=== PATIENT | female | born 1995 | race Caucasian/White ===

== ENCOUNTER → 2018-07-23 | Day surgery (SDC) | payer OTHER ==
[~2018-07-23] VITALS: Ht 167.6 cm; Wt 77.1 kg
[~2018-07-23] MED LIST: DEXAMETHASONE SOD PHOS 20 MG/5 ML VIAL. ONE; FAMOTIDINE 20 MG/2 ML VIAL ONE; FERRIC SUBSULFATE 8 ML SOL.W.APPL TP ONE; IV RINGERS,LACTATED 1000ML 1,000 ML IV SCH; KETOROLAC 30 MG/ML INJ FOR OR. INJ ONE; LIDOCAINE 1% PF 5 ML VIAL. ONE; LIDOCAINE 1%/EPI 1:100,000 20 ML VIAL. ONE; MIDAZOLAM HCL/PF 2 MG/2 ML VIAL. ONE; ONDANSETRON PF 4 MG/2 ML VIAL. ONE; PROPOFOL 20 ML IV ONE; SEVOFLURANE 16 TO 30 MINUTES. IH ONE; oxyCODONE/APAP 5/325 1 TAB TABLET PO ONE
[2018-07-23 08:21] LABS: U PREG PATIENT NEGATIVE (NEG)
--- NOTE | 2018-07-23 10:13 | PDOC ---
BRIEF OPERATIVE NOTE Date: Jul 23, 2018 Pre-Op Diagnosis cervical dysplasia Post-Op Diagnosis same Procedure Performed Cervical Cone bx Surgeon Dr. Diaz Anesthesia Type: General Blood Loss less than 5 ml Specimens Obtained cervical cone bx Findings cervical dysplasia Complications none Operative Note see dictation ANGELI DIAZ Jr, MD Jul 23, 2018 10:13
--- NOTE | 2018-07-23 10:15 | DISCH ---
DISCHARGE INSTRUCTIONS Condition on Discharge Condition on Discharge: Stable Activity After Discharge Activity Instructions for Disc: Activity as tolerated Lifting Instructions after Dis: No heavy lifting Driving Instructions after Dis: Do not drive today Diet after Discharge Diet after Discharge: Regular Contacting the DRTae after DC Call your doctor for: Concerns you may have Follow-Up Follow up with: Dr. Diaz in 2 weeks. ANGELI DIAZ Jr, MD Jul 23, 2018 10:15
[2018-07-23 11:10] VITALS: BP 122/68
--- NOTE | 2018-07-23 11:52 | OP ---
DATE OF SURGERY: PREOPERATIVE DIAGNOSIS: Cervical dysplasia. POSTOPERATIVE DIAGNOSIS: Cervical dysplasia. PROCEDURE: Cervical cone biopsy. SURGEON: Angeli Diaz MD ANESTHESIA: GETA. ESTIMATED BLOOD LOSS: Less than 5 mL. COMPLICATIONS: None. FINDINGS: Cervical dysplasia. SUMMARY: A 23-year-old who had colposcopic biopsy of ANT 2, requiring cervical cone biopsy. The patient was counseled on risks, benefits and expectations and voiced clear understanding to proceed. The patient also requested cervical cultures and STD screening, which we did perform. DESCRIPTION OF PROCEDURE: The patient was taken to surgery suite, placed in dorsal lithotomy position, was prepped with Betadine solution and draped in sterile fashion. After adequate anesthesia, weighted speculum and curved Enrico placed vaginally. Anterior lip of the cervix grasped with single tooth tenaculum. Cervix was injected 1% lidocaine in circumferential manner, 2-0 Vicryl sutures placed at 3 o'clock and 9 o'clock position for better stabilization of cervix. The single tooth tenaculum was removed. With the aid of 45 degree blade, a portion of the anterior and posterior lip of the cervix was excised in a cone formation. The remaining cervical epithelium was cauterized with Bovie cautery for hemostasis. Monsel's was also placed for better hemostasis. The weighted speculum was removed. The patient tolerated the procedure well and was sent to recovery room in stable condition. Sponge and needle count correct x 3. ANGELI DIAZ MD DR: JASWINDER/jaswinder JOB#: [id number] / [id number]
[2018-07-24 14:28] LABS: GC PROBE Positive (Negative)
--- NOTE | 2018-07-29 09:11 | PATHOLOGY ---
[facility] Accession Number: [id number] . 01 Material submitted: . CERVICAL CONE BIOPSY . 01 Clinical history: . Cervical dysplasia . 02 Diagnosis: Uterine cervix, cervical cone biopsy: - Severe dysplasia/carcinoma in situ (ANT III), with focal superficial endocervical glandular extension. - ANT III is focally present at the exocervical margin. - Endocervical and deep margins negative for ATN III. - Chronic cervicitis with focal squamous metaplasia. ([facility]; 07/28/2018) S/07/28/2018 . 02 Comment: There is no evidence of invasive carcinoma. . 02 Electronically signed: . Larry Butler MD, Pathologist NPI- [id number] . 01 Gross description: . The specimen is received in formalin, labeled "Sary Tubbs and cervical cone biopsy suture at the 12 o'clock position", is a semi-lunar, oriented pierre-white rubbery soft tissue measuring 3.7 x 1.2 x 1.0 cm. A blue suture indicates 12:00. The specimen is inked black, divided into 4 quadrants and each quadrant serially sectioned and the entire specimen is contiguously submitted in A1-A4. ([facility]; 07/23/2018) SHS/SHS . 02 Pathologist provided ICD-10: D06.9 . 02 CPT . 446587 Performed at: 01 [facility] [address], [place] [id number] MD Stone Salgado MD Phone: [phone] Performed at: 02 [facility] [address] [place], [place] [id number] MD Larry Butler MD Phone: [phone]
== END | disposition home or self-care (01) ==
LOC: SURG 07:38
PROVIDERS: ATTEND Obstetrics & Gynecology
DX: D06.0 Carcinoma in situ of endocervix (principal); N72 Inflammatory disease of cervix uteri; A64 Unspecified sexually transmitted disease; Z86.19 Personal history of other infectious and parasitic diseases; Z90.49 Acquired absence of other specified parts of digestive tract
CPT/HCPCS: 57500; 81025; 86592; 86703; 87491; 87591; 88307; J0690; J1100; J1885; J2250; J2405; J2704; J3490; S0028; 36415; 86695; A7015

== ENCOUNTER → 2018-07-31 | Outpatient (CLI) | payer OTHER ==
[~2018-07-31] MED LIST changes: -DEXAMETHASONE SOD PHOS 20 MG/5 ML VIAL. ONE; -FAMOTIDINE 20 MG/2 ML VIAL ONE; -FERRIC SUBSULFATE 8 ML SOL.W.APPL TP ONE; -IV RINGERS,LACTATED 1000ML 1,000 ML IV SCH; -KETOROLAC 30 MG/ML INJ FOR OR. INJ ONE; -LIDOCAINE 1% PF 5 ML VIAL. ONE; -LIDOCAINE 1%/EPI 1:100,000 20 ML VIAL. ONE; -MIDAZOLAM HCL/PF 2 MG/2 ML VIAL. ONE; -ONDANSETRON PF 4 MG/2 ML VIAL. ONE; -PROPOFOL 20 ML IV ONE; -SEVOFLURANE 16 TO 30 MINUTES. IH ONE; +cefTRIAXone IM 250 MG VIAL IM ONE; -oxyCODONE/APAP 5/325 1 TAB TABLET PO ONE
[2018-07-31 12:03] VITALS: BP 113/65
== END | disposition home or self-care (01) ==
LOC: OPS 10:46
PROVIDERS: ATTEND Obstetrics & Gynecology
DX: A54.9 Gonococcal infection, unspecified (principal); Z85.41 Personal history of malignant neoplasm of cervix uteri; Z86.19 Personal history of other infectious and parasitic diseases; Z90.49 Acquired absence of other specified parts of digestive tract
CPT/HCPCS: 96372; J0696

== ENCOUNTER 2018-10-01 06:26 | Observation (INO) | payer OTHER ==
[~2018-10-01] VITALS: Ht 167.6 cm; Wt 81.6 kg
[2018-10-01] VITALS (13 sets, daily range): BP systolic 98–113; BP diastolic 49–67
[~2018-10-01 06:26] MED LIST changes: +[UNRECOGNIZED DRUG - OTHER]; -cefTRIAXone IM 250 MG VIAL IM ONE
[2018-10-01 06:58] LABS: U PREG PATIENT NEGATIVE (NEG)
[2018-10-01] MEDS ORDERED: LIDOCAINE 1% PF 2 ML VIAL. ID PRN (07:00)
[2018-10-01] MEDS ORDERED: fentaNYL PF VIAL 100 MCG/2 ML VIAL IV PRN (07:00)
[2018-10-01] MEDS ORDERED: IV RINGERS,LACTATED 1000ML 1,000 ML IV SCH (07:00)
[2018-10-01] MEDS ORDERED: PROCHLORPERAZINE 10 MG/2 ML VIAL. IV PRN ×2 (07:00→09:15)
[2018-10-01] MEDS ORDERED: ONDANSETRON PF 4 MG/2 ML VIAL. IV PRN ×2 (07:00→09:15)
[2018-10-01] MEDS ORDERED: METHYLENE BLUE 1% 10 ML VIAL. ONE (07:26)
[2018-10-01] MEDS ORDERED: ESTROGENS, CONJ VAGINAL CREAM 30GM TUBE. ONE (07:26)
[2018-10-01] MEDS ORDERED: LIDOCAINE 1%/EPI 1:100,000 20 ML VIAL. INJ ONE (07:30)
[2018-10-01] MEDS ORDERED: PROPOFOL 20 ML IV ONE (07:53)
[2018-10-01] MEDS ORDERED: ONDANSETRON PF 4 MG/2 ML VIAL. ONE (07:53)
[2018-10-01] MEDS ORDERED: FAMOTIDINE 20 MG/2 ML VIAL ONE (07:53)
[2018-10-01] MEDS ORDERED: LIDOCAINE 1% PF 5 ML VIAL. ONE (07:53)
[2018-10-01] MEDS ORDERED: DEXAMETHASONE SOD PHOS 20 MG/5 ML VIAL. ONE (07:53)
[2018-10-01] MEDS ORDERED: ROCURONIUM 50 MG/5 ML VIAL. ONE (07:56)
[2018-10-01] MEDS ORDERED: fentaNYL PF VIAL 100 MCG/2 ML VIAL ONE ×3 (07:56→09:32)
[2018-10-01] MEDS ORDERED: MIDAZOLAM HCL/PF 2 MG/2 ML VIAL. ONE (07:56)
[2018-10-01] MEDS ORDERED: BUPIVAC MPF-EPI 0.5%-1:200000 30 ML VIAL. ONE (07:57)
[2018-10-01 08:10] LABS: BASO % 1 % (0-3); EOS # 0.1 x10^3/uL (0.0-0.7); EOS % 1 % (0-3); HEMATOCRIT 40.9 % (36.0-47.0); HEMOGLOBIN 14.3 g/dL (12.0-15.5); LYMPH # 2.2 x10^3/uL (1.0-4.8); LYMPH % 36 % (24-48); MEAN CORPUSCULAR HEMOGLOBIN 32 pg (25-35); MEAN CORPUSCULAR HGB CONC 35 g/dL (31-37); MEAN CORPUSCULAR VOLUME 92 fL (79-100); MONO # 0.5 x10^3/uL (0.0-1.1); MONO % 8 % (0-9); NEUT # 3.4 x10^3uL (1.8-7.7); NEUT % 55 % (31-73); PLATELET COUNT 207 x10^3/uL (140-400); RED BLOOD COUNT 4.43 x10^6/uL (3.50-5.40); RED CELL DISTRIBUTION WIDTH 12.6 % (11.5-14.5); WHITE BLOOD COUNT 6.2 x10^3/uL (4.0-11.0)
[2018-10-01] MEDS ORDERED: PHENYLEPHRINE in 0.9% NACL PF 1 MG/10 ML SYRINGE. IV ONE (08:48)
[2018-10-01] MEDS ORDERED: GLYCOPYRROLATE 1 MG/5 ML VIAL. ONE (08:48)
[2018-10-01] MEDS ORDERED: NEOSTIGMINE METHYLSULFATE 5 MG/5 ML SYRINGE. ONE (08:48)
[2018-10-01] MEDS ORDERED: SEVOFLURANE 31 TO 60 MINUTES. IH ONE (08:49)
--- NOTE | 2018-10-01 09:07 | PDOC ---
BRIEF OPERATIVE NOTE Date: Oct 01, 2018 Pre-Op Diagnosis ANT 3 Post-Op Diagnosis Same Procedure Performed 1. Nexplanon Removal Left arm 2. [facility] Surgeon Dr. Emily Craig Anesthesia Type: General Blood Loss 25 ml Specimens Obtained cervix, uterus and Nexplanon Findings ANT 3; Nexplanon in Left arm Complications none Operative Note see dictation ANGELI LEAL Jr, MD Oct 01, 2018 09:07
[2018-10-01] MEDS ORDERED: CALCIUM CARBONATE 500 MG TAB.CHEW PO PRN (09:15)
[2018-10-01] MEDS ORDERED: ZOLPIDEM 5 MG TABLET. PO PRN (09:15)
[2018-10-01] MEDS ORDERED: diphenhydrAMINE HCL 25 MG CAPSULE PO PRN (09:15)
[2018-10-01] MEDS ORDERED: 0.9 % SODIUM CHLORIDE 10 ML DISP.SYRIN. IV PRN (09:15)
[2018-10-01] MEDS ORDERED: DEXTROSE 50% 25 GM / 50ML DISP.SYRIN. IV PRN (09:15)
[2018-10-01] MEDS ORDERED: SIMETHICONE 80 MG TAB.CHEW PO PRN (09:15)
[2018-10-01] MEDS: fentaNYL PF VIAL 100 MCG/2 ML VIAL IV PRN ×4 (09:20→10:10)
--- NOTE | 2018-10-01 09:56 | OP ---
DATE OF SURGERY: PREOPERATIVE DIAGNOSES: ANT 3. POSTOPERATIVE DIAGNOSES: ANT 3. PROCEDURE: 1. Nexplanon removal, left arm. 2. TVH. SURGEON: Angeli Diaz MD GENERAL MANAGER: Kiara. ANESTHESIA: GETA. ESTIMATED BLOOD LOSS: 25 mL. COMPLICATIONS: None. FINDINGS: ANT 3. Normal fallopian tubes and ovaries bilaterally. SUMMARY: A 23-year-old female with ANT 3 that persisted despite cone biopsy, required transvaginal hysterectomy. The patient also requested Nexplanon removal. She was counseled on risks, benefits and expectations and voiced clear understanding to proceed. DESCRIPTION OF PROCEDURE: The patient was placed in dorsal lithotomy position. She was prepped and draped in sterile fashion. The left arm where the Nexplanon was identified was prepped with ChloraPrep, 0.5% lidocaine with epinephrine was injected in the left arm at the site of the Nexplanon device. A small vertical skin incision was made with scalpel. DICTATION ENDS HERE. ANGELI DIAZ MD DR: JASWINDER/jaswinder JOB#: [id number] / [id number]
--- NOTE | 2018-10-01 10:02 | OP ---
DATE OF SURGERY: ADDENDUM. Please add this to the previous OP note, the phone system cut me off. The process of removing the Nexplanon, in which the arm was injected with 0.5% lidocaine with epinephrine at the site of the Nexplanon. Scalpel was used to make a small vertical skin incision. With the aid of a hemostat, the Nexplanon device was removed. Steri-Strip was placed to reapproximate the skin edges of the incision site, and Kerlix bandage was also placed for pressure dressing. Weighted speculum and curved [place] placed vaginally. Posterior lip of the cervix grasped with Seema clamps. 1% lidocaine with epinephrine was injected circumferentially. Bovie cautery was utilized to circumscribe the cervix. The vaginal wall mucosa was dissected away from the lower uterine segment using a moist Ray-Riley. Parametrial tissue and cardinal ligaments were clamped bilaterally with curved Pola clamps, cut and suture ligated with 2-0 Vicryl suture. The anterior cul-de-sac was entered using sharp dissection with Metzenbaum scissors. The curved Enrico was reapproximated for retraction purposes. The posterior cul-de-sac was entered bluntly. The long weighted speculum was placed. Uterosacral ligaments were clamped bilaterally, cut and suture ligated. The uterus was then retroverted, which the round ligament and uteroovarian pedicles were clamped bilaterally, cut and suture ligated. The uterus and cervix were then removed in their entirety. The vaginal cuff was reapproximated using modified Garcia culdoplasty. The remainder of the vaginal cuff was reapproximated using [id number] sutures. Moist vaginal packing was placed. Chang catheter was placed, which elicited clear yellow urine. The patient tolerated the procedure well and was sent to recovery room in stable condition. Sponge and needle count correct x 3. ANGELI LEAL MD DR: JASWINDER/jaswinder JOB#: [id number] / [id number]
[2018-10-01] MEDS ORDERED: MORPHINE SULFATE 10 MG/ML VIAL. IV ONE (10:45)
[2018-10-01] MEDS ORDERED: IBUPROFEN 400 MG TABLET. PO PRN (10:45)
[2018-10-01] MEDS: KETOROLAC 30 MG/ML VIAL. IV PRN ×3 (11:04→23:53)
[2018-10-01] MEDS: IV RINGERS,LACTATED 1000ML 1,000 ML IV SCH ×2 (11:06→19:30)
[2018-10-01] MEDS: GABAPENTIN 300 MG CAPSULE. PO SCH ×2 (14:08→21:47)
[2018-10-01] MEDS ORDERED: OPIUM/BELLADONNA 30/16.2MG SUPP.RECT. PR PRN (14:15)
[2018-10-02 00:26] VITALS: BP 108/54
[2018-10-02] MEDS: IV RINGERS,LACTATED 1000ML 1,000 ML IV SCH (03:36)
[2018-10-02 03:40] VITALS: BP 105/54
[2018-10-02] MEDS: GABAPENTIN 300 MG CAPSULE. PO SCH (05:55)
--- NOTE | 2018-10-02 08:20 | DISCH ---
DISCHARGE INSTRUCTIONS Condition on Discharge Condition on Discharge: Stable Activity After Discharge Activity Instructions for Disc: Activity as tolerated Lifting Instructions after Dis: No heavy lifting Driving Instructions after Dis: Do not drive today Diet after Discharge Diet after Discharge: Regular Contacting the DRTae after DC Call your doctor for: Concerns you may have Follow-Up Follow up with: Dr. Diaz in 2 weeks. ANGELI DIAZ Jr, MD Oct 02, 2018 08:20
--- NOTE | 2018-10-02 08:20 | PDOC ---
SURGICAL PROGRESS NOTE Subjective Pt. feeling well. Pain controlled. Vital Signs Vital Signs Date Time Temp Pulse Resp B/P (MAP) Pulse Ox O2 Delivery O2 Flow Rate FiO2 10/02/18 08:03 Room Air 10/02/18 03:40 97.9 86 18 105/54 (71) 96 97.9 10/01/18 12:30 96.0 I&O Intake and Output 10/02/18 07:00 Intake Total 1720 ml Output Total 2350 ml Balance -630 ml Intake Oral 1720 ml Output Urine Total 2350 ml # Voids 4 PATIENT HAS A HILLIARD: No General: Alert, Oriented X3, Cooperative HEENT: Atraumatic Lungs: Clear to auscultation Heart: Regular rate Abdomen: Normal bowel sounds, Soft, No masses Extremities: No edema Psych/Mental Status: Mental status NL Labs Laboratory Tests Test 10/01/18 06:00 10/01/18 06:50 Urine Test Negative (NEG) White Blood Count 6.2 x10^3/uL (4.0-11.0) Red Blood Count 4.43 x10^6/uL (3.50-5.40) Hemoglobin 14.3 g/dL (12.0-15.5) Hematocrit 40.9 % (36.0-47.0) Mean Corpuscular Volume 92 fL (79-100) Mean Corpuscular Hemoglobin 32 pg (25-35) Mean Corpuscular Hemoglobin Concent 35 g/dL (31-37) Red Cell Distribution Width 12.6 % (11.5-14.5) Platelet Count 207 x10^3/uL (140-400) Neutrophils (%) (Auto) 55 % (31-73) Lymphocytes (%) (Auto) 36 % (24-48) Monocytes (%) (Auto) 8 % (0-9) Eosinophils (%) (Auto) 1 % (0-3) Basophils (%) (Auto) 1 % (0-3) Neutrophils # (Auto) 3.4 x10^3uL (1.8-7.7) Lymphocytes # (Auto) 2.2 x10^3/uL (1.0-4.8) Monocytes # (Auto) 0.5 x10^3/uL (0.0-1.1) Eosinophils # (Auto) 0.1 x10^3/uL (0.0-0.7) Basophils # (Auto) 0.0 x10^3/uL (0.0-0.2) Assessment/Plan A: POD#1 s/p TVH P: D/c home. ANGELI LEAL Jr, MD Oct 02, 2018 08:20
[2018-10-02] MEDS ORDERED: IBUP-1027 PO (08:23)
[2018-10-02] MEDS ORDERED: GABA300C8 PO (08:23)
[2018-10-02 08:38] LABS: BASO % 0 % (0-3); EOS % 0 % (0-3); HEMATOCRIT 34.1 % (36.0-47.0); HEMOGLOBIN 11.7 g/dL (12.0-15.5); LYMPH % 24 % (24-48); MEAN CORPUSCULAR HEMOGLOBIN 32 pg (25-35); MEAN CORPUSCULAR HGB CONC 34 g/dL (31-37); MEAN CORPUSCULAR VOLUME 93 fL (79-100); MONO # 0.6 x10^3/uL (0.0-1.1); MONO % 8 % (0-9); NEUT # 5.6 x10^3uL (1.8-7.7); NEUT % 68 % (31-73); PLATELET COUNT 163 x10^3/uL (140-400); RED BLOOD COUNT 3.68 x10^6/uL (3.50-5.40); RED CELL DISTRIBUTION WIDTH 12.7 % (11.5-14.5); WHITE BLOOD COUNT 8.2 x10^3/uL (4.0-11.0)
[2018-10-02 09:19] VITALS: BP 98/62
--- NOTE | 2018-10-02 10:52 | OP ---
DATE OF SURGERY: 10/01/2018 PREOPERATIVE DIAGNOSES: ANT 3. POSTOPERATIVE DIAGNOSES: ANT 3. PROCEDURE: 1. Nexplanon removal, left arm. 2. TVH. SURGEON: Angeli Leal MD TRUSS DESIGNER: Kiara. ANESTHESIA: GETA. ESTIMATED BLOOD LOSS: 25 mL. COMPLICATIONS: None. FINDINGS: ANT 3. Normal fallopian tubes and ovaries bilaterally. SUMMARY: A 23-year-old female with ANT 3 that persisted despite cone biopsy, required transvaginal hysterectomy. The patient also requested Nexplanon removal. She was counseled on risks, benefits and expectations and voiced clear understanding to proceed. DESCRIPTION OF PROCEDURE: The patient was placed in dorsal lithotomy position. She was prepped and draped in sterile fashion. The left arm where the Nexplanon was identified was prepped with ChloraPrep, 0.5% lidocaine with epinephrine was injected in the left arm at the site of the Nexplanon device. A small vertical skin incision was made with scalpel. The process of removing the Nexplanon, in which the arm was injected with 0.5% lidocaine with epinephrine at the site of the Nexplanon. Scalpel was used to make a small vertical skin incision. With the aid of a hemostat, the Nexplanon device was removed. Steri-Strip was placed to reapproximate the skin edges of the incision site, and Kerlix bandage was also placed for pressure dressing. Weighted speculum and curved [place] placed vaginally. Posterior lip of the cervix grasped with Seema clamps. 1% lidocaine with epinephrine was injected circumferentially. Bovie cautery was utilized to circumscribe the cervix. The vaginal wall mucosa was dissected away from the lower uterine segment using a moist Ray-Riley. Parametrial tissue and cardinal ligaments were clamped bilaterally with curved Pola clamps, cut and suture ligated with 2-0 Vicryl suture. The anterior cul-de-sac was entered using sharp dissection with Metzenbaum scissors. The curved Enrico was reapproximated for retraction purposes. The posterior cul-de-sac was entered bluntly. The long weighted speculum was placed. Uterosacral ligaments were clamped bilaterally, cut and suture ligated. The uterus was then retroverted, which the round ligament and uteroovarian pedicles were clamped bilaterally, cut and suture ligated. The uterus and cervix were then removed in their entirety. The vaginal cuff was reapproximated using modified Garcia culdoplasty. The remainder of the vaginal cuff was reapproximated using [id number] sutures. Moist vaginal packing was placed. Chang catheter was placed, which elicited clear yellow urine. The patient tolerated the procedure well and was sent to recovery room in stable condition. Sponge and needle count correct x 3. ANGELI LEAL MD DR: JASWINDER/jaswinder JOB#: [id number] / [id number]
--- NOTE | 2018-10-02 16:09 | PATHOLOGY ---
[facility] Accession Number: [id number] . 01 Material submitted: . UTERUS AND CERVIX . 01 Clinical history: . None provided. Non-invasive cervical cancer per prior specimen. . 02 Diagnosis: "Uterus and cervix", vaginal hysterectomy: - Cervix with previous excision site changes; all new margins free of dysplasia. - Endometrium with weakly proliferative pattern and tubal metaplasia. - Myometrium with minimal histologic alterations. [facility]/10/02/2018 . 02 Comment: The patient has a history of "severe dysplasia/carcinoma in situ (ANT-III) with focal superficial endocervical glandular extension, focally present at the ectocervical margin" from a previous cervical cone biopsy ([id number]). ([facility] 10/02/2018) . 02 Electronically signed: . Maru Leavitt MD, Pathologist NPI- [id number] . 01 Gross description: . Received in formalin labeled "Sary Tubbs, uterus and cervix" is a hysterectomy specimen consisting of a uterus without attached fallopian tubes or ovaries. Parametrium is not present. The uterus weighs 63 g and measures 8.1 cm from fundus to cervix, 5.2 cm from cornu to cornu, and 2.7 cm from anterior to posterior. The serosa is pink orellana and smooth. The cervical os is slitlike and measures 1.5 cm, and the ectocervix is pink-orellana and glistening. No lesions are identified on the cervix. The ectocervical resection margin is inked green and the remainder of the cervical margin is inked black. The cervix is probed patent and the uterus is opened to reveal a 3.5 x 1.6 cm endometrial cavity and a 2.5 x 0.8 cm endocervical canal. The average endometrial thickness measures 0.1 cm and the average myometrial thickness measures 1.5 cm. The uterus is serially sectioned to reveal no leiomyomata. [employer] sections are submitted as follows: A1-A2 12:00 to 3:00 cervix A3-A6 3:00 to 6:00 cervix A7-A11 6:00 to 9:00 cervix A12-A14 9:00 to 12:00 cervix A15 anterior lower uterine segment A16 posterior lower uterine segment A17 anterior endomyometrium A18 posterior endomyometrium [place] [place] SYC/SYC . 02 Pathologist provided ICD-10: N85.8, Z86.001 . 02 CPT . 782052 Specimen Comment: A courtesy copy of this report has been sent to Specimen Comment: [phone]. Specimen Comment: Report sent to Performed at: 01 [facility] [address], [place] [id number] MD Stone Salgado MD Phone: [phone] Performed at: 02 [facility] [address] [place], [place] [id number] MD Larry Butler MD Phone: [phone]
== END 2018-10-02 09:20 | disposition home or self-care (01) ==
LOC: SURG 06:26 → 3 NORTH 09:29
PROVIDERS: ADMIT Obstetrics & Gynecology; ATTEND Obstetrics & Gynecology
DX: D06.9 Carcinoma in situ of cervix, unspecified (principal)
CPT/HCPCS: 11982; 36415; 58260; 81025; 85025; 86850; 86900; 86901; 88309; 96374; 96375; 96376; A7015; G0378; G0379; J0690; J0780; J1100; J1885; J2250; J2270; J2370; J2704; J2710; J3010; J3490; J7120; J2405; Q9968